=== PATIENT | female | born 1950 | race Caucasian/White ===

== ENCOUNTER 2017-04-26 15:38 | Emergency (ER) | payer OTHER ==
[~2017-04-26] VITALS: Ht 162.6 cm; Wt 77.1 kg
--- NOTE | 2017-04-26 16:37 | ED HAND/WRIST INJURY COMPLAINT ---
History of Present Illness General Chief Complaint: Laceration Procedure Stated Complaint: LAC TO LFT HAND Source: patient, family Exam Limitations: no limitations Vital Signs & Intake/Output Vital Signs & Intake/Output Vital Signs Date Time Temp Pulse Resp B/P B/P Pulse O2 O2 Flow FiO2 Mean Ox Delivery Rate 04/26 1732 97.8 75 18 155/75 98 Room Air 04/26 1543 98.1 74 16 144/78 99 Room Air ED Intake and Output 04/27 0000 04/26 1200 Intake Total Output Total Balance Patient 170 lb Weight Allergies Coded Allergies: sulfamethoxazole (From BACTRIM) (Severe, HIVES 04/26/17) trimethoprim (From BACTRIM) (Severe, HIVES 04/26/17) codeine (Mild, VOMITING 04/26/17) Triage Note: PT STATES THAT SHE WAS USING PREFABRICATOR WHEN SHE WAS GOING TO PLUG MIXER IN AND THAT SHE DIDNT REALIZE THAT IT WAS TURNED ION AND BEATER CAUGHT HER L HAND, NOTED WITH LAC TO TOP OF HAND, ALSO COMPLAINS OF THUMB PAIN. REFUSES MEDS AT TRIAGE Triage Nurses Notes Reviewed? yes Occurred: just prior to arrival Duration: hour(s): Timing: single episode today Injury Environment: home Severity: moderate Pain/Injury Location: Left: Hand. Context: laceration Method of Injury: laceration HPI: 66-year-old female presents emergency department complaining of laceration to left hand. Patient states that prior to arrival she was using electronic beater for cooking and did not realize that it was connected to the power source, it cut her hand. She was able to control the bleeding at home prior to arrival. She is up-to-date with her tetanus shot, last vaccine was in 2008. She denies numbness, tingling, swelling. (COSTA LAMBERT,ALEXI MINAYA) Past History Travel History Traveled to [place] past 21 day No Medical History Any Pertinent Medical History? none Neurological: NONE EENT: NONE Cardiovascular: NONE Respiratory: NONE Gastrointestinal: NONE Hepatic: NONE Renal: NONE Musculoskeletal: NONE Endocrine: NONE Blood Disorders: NONE Cancer(s): NONE INSTRUMENTATION ENGINEER/Reproductive: NONE Influenza Vaccine: 06/30/11 Surgical History Surgical History: non-contributory Psychosocial History What is your primary language Tuvaluan Tobacco Use: Never used ETOH Use: denies use Illicit Drug Use: denies illicit drug use Family History Hx Contributory? No (ALEXI SKELTON PA-C) Review of Systems Review of Systems Constitutional: Reports: no symptoms. EENTM: Reports: no symptoms. Respiratory: Reports: no symptoms. Cardiovascular: Reports: no symptoms. GI: Reports: no symptoms. Genitourinary: Reports: no symptoms. Musculoskeletal: Reports: see HPI. Skin: Reports: see HPI. Neurological/Psychological: Reports: no symptoms. Hematologic/Endocrine: Reports: no symptoms. Immunologic/Allergic: Reports: no symptoms. All Other Systems: Reviewed and Negative (ALEXI SKELTON PA-C) Physical Exam Physical Exam General Appearance: well developed/nourished, no apparent distress, alert, awake Head: atraumatic, normal appearance Eyes: Bilateral: normal appearance. Ears, Nose, Throat: hearing grossly normal Neck: normal inspection, supple, full range of motion Back: normal inspection, normal range of motion Hand Left: normal range of motion, 2cm laceration, subcutaneous tissue and muscle visible, no visible tendon, FROM intact Hand Right: normal inspection, normal range of motion Neurologic/Tendon: normal sensation, normal motor functions, normal tendon functions Skin: laceration as above (ALEXI SKELTON PA-C) Progress Differential Diagnosis: cellulitis, fracture, sprain, laceration Plan of Care: Orders Procedure Date/time Status XRY-HAND, 3 View LEFT 04/26 1547 Active Current Medications Sig/Vito Start time Last Medication Dose Stop Time Status Admin Acetaminophen 325 MG ONCE ONE 04/26 1645 UNVr (Tylenol) 04/26 1646 Lidocaine See Dose ONCE ONE 04/26 1645 UNVr (Lidocaine 1%) Insts (1) 04/26 1646 Dose Instructions: (1)Lidocaine (Lidocaine 1%): 1 BOTTLE Patient is up-to-date on her tetanus vaccine. Patient has full range of motion, no signs of tendon disruption, tendon is not visible. Wound closed with 4 stitches and dressed with bacitracin and Band-Aid. Patient tolerated procedure well. Patient was educated on signs and symptoms of infection, she will return with any of the signs for antibiotics. The patient was instructed to follow up here or with her primary care doctor in 7-10 days for suture removal. The patient is in agreement with the plan of care. She is well-appearing, in no acute distress. Patient was discussed with Dr. Malone. (COSTA LAMBERT,ALEXI MINAYA) Diagnostic Imaging: Viewed by Me: Radiology Read. Discussed w/RAD: Radiology Read. Radiology Impression: PATIENT: AURY MARTELL PRESENT AGE: 66 PATIENT ACCOUNT NO: [id number] : 49 LOCATION: [facility] ORDERING PHYSICIAN: PENNY IBANEZ DO SERVICE DATE: 04/26/17 EXAM TYPE: RAD - XRY-HAND, LEFT EXAMINATION: XR HAND, LEFT CLINICAL INFORMATION: Injury to the left hand. COMPARISON: None TECHNIQUE: PA, lateral and oblique views of the left hand. FINDINGS: There is no evidence of fracture or dislocation. Mild osseous demineralization is noted. No significant degenerative changes are seen. No evidence of radiopaque foreign body or soft tissue air. IMPRESSION: No evidence of fracture or dislocation in the left hand. DICTATED BY : BRIGITTE SANTIAGO MD DATE/TIME DICTATED:04/26/171642 DRY WALL PLASTERER:CANDICE DATE/TIME TRANSCRIBED:04/26/171642 CONFIDENTIAL, DO NOT COPY WITHOUT APPROPRIATE AUTHORIZATION. <Electronically signed in Other Vendor System> SIGNED BY: JACK BURGOS,BRIGITTE 04/26/171647 (COSTA LAMBERT,ALEXI MINAYA) Departure Departure Disposition: HOME OR SELF CARE Condition: Stable Clinical Impression Primary Impression: Laceration Referrals: ROYCE MERLOS MD (PCP/Family) Additional Instructions: Keep wound clean and dry, remove bandage tomorrow. You may apply Neosporin or bacitracin for the next 3 days. You may cover with Band-Aid during the day however leave the wound open to dry at night follow-up with your primary care doctor or return here in 7-10 days for removal of stitches. Monitor for signs of infection including redness, increasing pain, swelling, cloudy drainage from wound. Return sooner with any of these symptoms as you may need antibiotics. Please note that there might be incidental findings in your evaluation that are unrelated to the current emergency department visit. Please notify your primary care doctor about this emergency department visit in order to obtain and review all of the testing performed so that these incidental findings can be monitored as needed. If you had an x-ray performed, please understand that some fractures may not be seen on the initial set of x-rays. If your symptoms persist you might need a repeat set of x-rays to check for such a fracture. If you had a laceration evaluated, please understand that foreign bodies such as glass or wood may not be visible to the naked eye or on plain x-rays. If the wound becomes red, swollen, increasingly more painful or if there is any drainage from the wound, please have it reevaluated by a physician for the possibility of a retained foreign body. If you're unable to follow up as outlined in the discharge instructions please return to the emergency department. Thank you for choosing the [facility] Emergency Department for your care. It was a pleasure to serve you today. Departure Forms: Customer Survey General Discharge Information (COSTA LAMBERT,ALEXI MINAYA) PA/SENIOR ACCOUNT MANAGER Co-Sign Statement Statement: ED Attending supervision documentation- [] I saw and evaluated the patient. I have also reviewed all the pertinent lab results and diagnostic results. I agree with the findings and the plan of care as documented in the PA's/SENIOR ACCOUNT MANAGER's documentation. [X] I have reviewed the ED Record and agree with the PA's/SENIOR ACCOUNT MANAGER's documentation. [] Additions or exceptions (if any) to the PAs/SENIOR ACCOUNT MANAGER's note and plan are summarized below: [] (KASANDRA BURGOS,MADELYN) Procedures Laceration/Wound Repair Laceration/Wound Repair: Wound Location: head (left hand) Wound Length (cm): 2 Wound Explored: irrigated extensively Irrigated w/ Saline (ccs): 400 Betadine Prep? Yes Anesthesia: 1% lidocaine Volume Anesthetic (ccs): 6 Wound Repaired With: sutures Suture Size/Type: 5:0 Number of Sutures: 4 Layer Closure? No Tetanus Status: up to date Progress: Wound sutured by PA student under my direct supervision. Patient tolerated procedure well. (COSTA LAMBERT,ALEXI MINAYA)
--- NOTE | 2017-04-26 16:48 | RADIOLOGY REPORT ---
EXAMINATION: XR HAND, LEFT CLINICAL INFORMATION: Injury to the left hand. COMPARISON: None TECHNIQUE: PA, lateral and oblique views of the left hand. FINDINGS: There is no evidence of fracture or dislocation. Mild osseous demineralization is noted. No significant degenerative changes are seen. No evidence of radiopaque foreign body or soft tissue air. IMPRESSION: No evidence of fracture or dislocation in the left hand.
[2017-04-26 17:32] VITALS: BP 155/75
== END 2017-04-26 17:39 ==
LOC: ERH 15:38
DX: S61.412A Laceration without foreign body of left hand, initial encounter (principal); W29.0XXA Contact with powered kitchen appliance, initial encounter; Y93.G1 Activity, food preparation and clean up; Y92.9 Unspecified place or not applicable
CPT/HCPCS: 73130-LT